=== PATIENT | female | born 1965 | race Caucasian/White ===

== ENCOUNTER 2021-06-02 16:20 | Outpatient (CLI) | payer OTHER, SELFPAY ==
--- NOTE | ~2021-06-02 | CT_ITS ---
EXAMINATION: XR abdomen/kub 1V, CT abdomen pelvis wo/w con DATE: 06/02/2021 16:50 INDICATION: Microscopic hematuria TECHNIQUE: 1. Computed tomography (CT) of the abdomen and pelvis was performed without intravenous contrast. CT of the abdomen and pelvis was then performed with a total of 130 mL Omnipaque-350 intravenous contras t using a double-bolus technique for simultaneous opacification of the renal parenchyma and renal col lecting system. Automated exposure control and iterative reconstruction technique were employed. The dose-length product was 676.50 mGy-cm. 2. AP view of the abdomen and pelvis was obtained on 2 overlapping radiographs. COMPARISON: None FINDINGS: CT UROGRAM: Lung bases are clear. Heart size is normal. No pericardial or pleural effusion. Liver, spleen, pancre as and bilateral adrenal glands are normal. Kidneys and ureters are normal with no urolithiasis, hydr oureteronephrosis or perinephric/ureteral stranding. The bilateral renal collecting systems and proxi mal to mid bilateral ureters are opacified with contrast. The distal ureters remain unopacified. No u rothelial irregularities identified along the contrast opacified portions of the collecting systems o r ureters. Mild diffuse irregularity to the mucosal surface of the bladder most likely related to tra beculation. Bowels including the appendix are normal. Uterus and bilateral adnexa are unremarkable. N o free intraperitoneal gas or fluid. No pathologically enlarged abdominal or pelvic lymphadenopathy. No suspicious lytic or blastic bone lesions. ABDOMEN RADIOGRAPH(S): No calcifications suspicious for urolithiasis. No dilated loops of gas-filled bowel to suggest obstru ction. Severe facet osteoarthritis on the right at L5-S1. IMPRESSION: 1. No urolithiasis, renal lesions or urothelial irregularities at the kidneys are ureters. 2. Mild irregularity to the mucosal contour of the bladder which appears relatively diffuse suggestin g either trabeculation related to outlet obstruction or neurogenic bladder or cystitis although recur rent malignancy cannot be excluded in this patient with reported history of prior bladder cancer. Reviewed, dictated and finalized at location A. CAR [employer]IVER IMPRESSION: 1. No urolithiasis, renal lesions or urothelial irregularities at the kidneys a re ureters. 2. Mild irregularity to the mucosal contour of the bladder which appears relati vely diffuse suggesting either trabeculation related to outlet obstruction or n eurogenic bladder or cystitis although recurrent malignancy cannot be excluded in this patient with reported history of prior bladder cancer.
[2021-06-02 17:04] LABS: Estimated Glomerular Filt Rate > 60
== END 2021-06-02 16:21 | disposition home or self-care (01) ==
PROVIDERS: PCP Family Medicine; Visit Provider Nurse Practitioner Adult Health
DX: R31.29 Other microscopic hematuria (principal); R93.41 Abnormal radiologic findings on diagnostic imaging of renal pelvis, ureter, or bladder
CPT/HCPCS: 74018; 74178; Q9967

== ENCOUNTER 2021-06-10 00:13 | Day surgery (SDC) | payer OTHER, SELFPAY ==
[2021-06-07 12:28] VITALS: BMI 21.1
--- NOTE | 2021-06-07 12:35 | PC.NURSE ---
Report to the Outpatient Waiting Room, entrance under the green pavilion located off [facility], at time 1230 on date 06/10/21. OR Time: 1430. - You and your visitor will be asked a series of questions to screen for COVID 19 for your protection. - A mask is required within the hospital. One visitor will be allowed to accompany the patient into the hospital. Patients visitor will be instructed to remain with patient at all times or leave the building. We will allow the visitor to come back to the postoperative area when patient is ready. Preoperative COVID Testing Requirements: No COVID Test needed if: (proof is required; if not received patient will have Rapid Test prior to entry) - Patient has received COVID Vaccine at least 14 days prior to procedure date or - Patient has positive COVID test result within last 90 days of surgery date. COVID Test needed if above criteria is not met Patients may have clear liquids (water, carbonated beverages, clear teas, apple juice) until 3 hours prior to surgery with a maximum of 20 ounces. - No food from midnight until time of surgery Take the following medications with a SIP of water the morning of surgery: NONE Medications to discontinue per physician: N/A Date to take last dose: N/A Please no make-up, nail [place], hairspray, perfume, deodorant, or body powder the day of surgery. No jewelry (including any body piercings) or valuables the day of surgery, leave them at home. Please take a shower or bath the night before, or the morning of, surgery with an antibacterial soap. Wear comfortable, loose fitting clothing. - Jewelry must be removed prior to entering the operating room. Rings and piercings that are not removed may be cut off. - The hospital will not accept responsibility for valuables. - Please leave all valuables, including medications, at home the day of surgery. If you are going home after surgery, a licensed haul truck driver must drive you home. - NO public transportation without another adult. - We recommend that an adult stay with you for 24 hours following discharge. - We also recommend that you do not drive, make important decision, drink alcoholic beverages, or take any drugs that were not prescribed by your health care provider for at least 24 hours after your discharge time. Follow any additional instructions given to you from your surgeon. Telephone instructions given to ANGELICA BABCOCK and asked if any additional questions and then verbalized understanding. Patient advised to call surgeon office or pre surgery nurse liaison [phone] if any additional questions.
[2021-06-10] VITALS (9 sets, daily range): BP systolic 100–145; BP diastolic 69–85; PULSE 63–94; RESP 10–20; TEMP 36.3–36.6; O2SAT 98–100
--- NOTE | ~2021-06-10 | XR_ITS ---
EXAMINATION: XR retrograde pyelogram BI DATE: 06/10/2021 13:08 INDICATION: Hematuria. Cystoscopy and bilateral retrograde ureterograms. TECHNIQUE: A total of 118 images of the abdomen and pelvis were obtained during procedure performed b jimmy Caro. Radiologist was not present for the imaging or procedure. The amount of fluoroscopy amalia e used during this procedure was 0.4 minutes. COMPARISON: 06/02/2021 FINDINGS: Normal appearance to the bilateral ureters and renal collecting systems. Several mobile lucent fillin g defects are seen throughout the course of the contrast injections with no corresponding urolithiasi s evident on the prior CT study and is most likely representing injected gas bubbles. IMPRESSION: 1. Normal bilateral retrograde pyelograms. See procedure note for further detail. Reviewed, dictated and finalized at location A. ATER IMPRESSION: 1. Normal bilateral retrograde pyelograms. See procedure note for further detkayode molina
--- NOTE | 2021-06-10 06:45 | WPDHPUPDATE1 ---
History and Physical Update Update Date/Time: 06/10/21 06:45 History and Physical has been reviewed, including an updated exam of the patient. There are NO changes in the patient's condition. Risks, benefits, and alternatives have been discussed and questions answered. Patient agrees to proceed with procedure.
--- NOTE | 2021-06-10 06:46 | WPDHPUPDATE1 ---
History and Physical Update Update Date/Time: 06/10/21 06:46 History and Physical has been reviewed, including an updated exam of the patient. There are NO changes in the patient's condition. Risks, benefits, and alternatives have been discussed and questions answered. Patient agrees to proceed with procedure.
[2021-06-10] MEDS: LACTATED RINGERS 1,000 ML 30 ML IV CONT (11:31)
--- NOTE | 2021-06-10 11:45 | P.PNAN_ITS ---
Anes - Initial Pre Proc Eval Procedure: Operation Date: 06/10/21 14:00 Proposed Procedures p Trans Urethral Resection Bladder Tumor with Gemcitabine Instillation - Emanuel Caro MD s Cystoscopy, Bilateral Retrograde Pyelogram - Emanuel Caro MD Date/Time: 06/10/21 11:45 Surgeon: Emanuel Caro MD Pre Op Diagnosis: Bladder Ca Patient Data Age: 56 Gender: F Height: 1.7 m Weight: 58.1 kg Last Vital Signs Temp 36.6 C 06/10/21 11:18 Pulse 94 06/10/21 11:18 Resp 16 06/10/21 11:18 BP 100/71 06/10/21 11:18 Pulse Ox 100 06/10/21 11:18 Allergies Allergy/AdvReac Type Severity Reaction Status Date / Time Sulfa (Sulfonamide Allergy Intermediate HIVES Verified 06/10/21 11:23 Antibiotics) Home Medications Medication Instructions Recorded Confirmed Type No Home Medications 06/07/21 06/10/21 History Patient hx anesthesia problems: none Family hx anesthesia problems: none Results Review: All pre-operative results and documents have been reviewed as part of the pre-operative evaluation. [facility] Past Medical History Medical History Bladder cancer Smoker Surgical History Surgical History (Updated 06/10/21 @ 11:46 by Raudel Malave MD) H/O transurethral destruction of bladder lesion Social History Social History Smoking packs per day: 0.5 Smoking cigarettes per day: 10.0 Years smoked: 35 Smoking pack-years: 17.50 Smoking status: Former smoker Tobacco type: cigarettes Smoking end date: 05/18/21 Alcohol intake: current Drinks per week: 2 Substance use: never Substance use type: does not use Living arrangements: with family Spiritual care concerns: No Anes - Eval Final PreProcedure Day of Procedure 06/10/21 11:45 Patient weight: normal Heart: regular rate and rhythm Lungs: clear to auscultation Airway: Mallampati scale class II Neurological: alert and oriented Last oral intake: >/= 8 hours ASA classification: III Emergent: no Anesthetic plan: proceed Anesthesia type and monitoring: general LMA and standard monitoring Results Review: All pre-operative results and documents have been reviewed as part of the pre-operative evaluation. Informed Consent: The patient's anesthetic plan and its attendant risks and benefits were discussed with the patient/family/POA. Questions were solicited and answers provided to the satisfaction of the patient/family/POA.
[2021-06-10] MEDS: ceFAZolin 2 GM/D5W 50 ML 2 GM/50 ML BAG IVPB (12:16)
[2021-06-10] MEDS: LIDOCAINE HCL 2% GEL UROJET 10 ML PKG MUCOUS MEM (12:32)
--- NOTE | 2021-06-10 12:56 | W.PM.PROC2 ---
Procedure Note - Detailed Date of Procedure 06/10/21 Pre-op Diagnosis Bladder Ca Post-op Diagnosis same Procedure Performed 1. TURBT (3-4cm, medium). 2. Bladder biopsy. Surgeon Emanuel Caro MD Anesthesia general Description of Procedure Patient is brought to the operative suite where she was prepped and draped in routine sterile fashion while in a dorsal lithotomy position after the uneventful induction of a general anesthetic. 2% lidocaine jelly was introduced in her urethra. Cystoscopy is first undertaken with a 19 F rigid cystoscope. She has a single orthotopic ureteral orifice bilaterally. Most of the entire posterior bladder wall appears somewhat hyperemia with areas of likely neoplasm both in the left posterior lateral and right posterior lateral. Using an 8F bulb-tipped catheters I obtain bilateral retrograde pyelograms which showed no filling defects or points of obstruction. I then resected each posterior lateral bladder area that appeared to be involved by chris neoplasm. A random biopsy was then obtained from the posterior midline. All areas were cauterized with the rollerball electrode. Estimated Blood Loss 0 Drains Yes Packing No Pathology yes Complications No immediate complications Condition stable Disposition PACU
--- NOTE | 2021-06-10 13:01 | W.PM.PROC2 ---
Procedure Note - Detailed Date of Procedure 06/10/21 Pre-op Diagnosis Bladder Ca Post-op Diagnosis same Procedure Performed Gemcitabine Surgeon Emanuel Caro MD Anesthesia general and none Description of Procedure With the patient in the supine position, a 16F Flood catheter is placed using sterile technique. Using a protective facemask, gown and double layer of gloves Gemcitabine 2gm in 100cc saline is administered through the catheter/into the bladder. The catheter is then plugged. Patient was instructed to lie supine x20min, then to roll both the left and right x20 min. each. Total dwell time will be 60 min., after which the bladder will be drained and catheter removed. Estimated Blood Loss 0 Drains Yes Pathology none sent Complications No immediate complications Condition stable Disposition PACU
[2021-06-10] MEDS: SODIUM CHLORIDE 0.9% IV 23.7 ML, GEMCITABINE HCL 1,000 MG BLADDER ×2 (13:25)
== END 2021-06-10 15:45 | disposition home or self-care (01) ==
PROVIDERS: PCP Family Medicine; Visit Provider Urology
PROC: 0TBB8ZZ Excision of Bladder, Via Natural or Artificial Opening Endoscopic (ICD-10-PCS; CPT 52235; principal; 2021-06-10 14:00)
PROC: (CPT 52352; 2021-06-10 14:00)
DX: D09.0 Carcinoma in situ of bladder (principal); N30.20 Other chronic cystitis without hematuria; Z87.891 Personal history of nicotine dependence
CPT/HCPCS: 52235; 51720; 74420; 88305; A9270; C1758; C1769; J0690; J1100; J2405; J2704; J7120; J9201; Q9966